=== PATIENT | female | born 1935 ===

== ENCOUNTER 2017-06-14 03:32 | Emergency (ER) ==
[2017-06-14 04:15] VITALS: BP 133/61; TEMP 97.7; BMI 29.0
[2017-06-14] MEDS ORDERED: SODIUM CHLORIDE 1,000 ML IV STA (05:16)
[2017-06-14 05:57] LABS: BASOPHILS % (AUTO) 0.3 % (0.0-3.0); HEMATOCRIT 46.6 % (37.0-47.0); HEMOGLOBIN 15.9 g/dl (12.0-16.0); IMMATURE GRANULOCYTE % (AUTO) 0.3 % (0.0-5.0); LYMPHOCYTES # (AUTO) 1.4 K/uL (0.60-3.4); LYMPHOCYTES % (AUTO) 12.5 (10.0-50.0); MEAN CORPUSCULAR HEMOGLOBIN 31.9 pg (27.0-31.0); MEAN CORPUSCULAR HGB CONC 34.1 (31.8-35.4); MEAN CORPUSCULAR VOLUME 93.4 fl (81.0-99.0); MONOCYTES # (AUTO) 0.8 K/uL (0.4-2.0); MONOCYTES % (AUTO) 6.5 (0-10); NEUTROPHILS # (AUTO) 9.3 K/ul (2.0-6.9); NEUTROPHILS % (AUTO) 80.4; PLATELET COUNT 246 10^3/uL (140-440); RED BLOOD COUNT 4.99 10^6/ul (4.20-5.40); WHITE BLOOD COUNT 11.52 K/ul (4.6-10.2)
[2017-06-14] MEDS ORDERED: PROTONIX IV IVP STA (06:00)
[2017-06-14 06:16] LABS: ALBUMIN 3.4 g/dL (3.4-5.0); ALBUMIN/GLOBULIN RATIO 0.85; ANION GAP 16.3; BILIRUBIN,TOTAL 0.31 mg/dL (0.00-1.20); BUN/CREATININE RATIO 20.25; CALCIUM 8.9 mg/dL (8.2-10.2); CREATININE 0.79 mg/dL (0.60-1.30); POTASSIUM 3.3 mmol/L (3.5-5.10); TOTAL PROTEIN 7.4 g/dL (5.8-8.1)
--- NOTE | 2017-06-14 06:21 | ED.PDOC ---
General Stated Complaint: [place] [facility] [place] [facility] [place] and [place] Time Seen by Physician: 04:00 Mode of Arrival: Ambulance Information Source: EMT, Other Exam Limitations: No limitations Nursing and Triage Documentation Reviewed and Agree: Yes <BLANQUITAAMIDELFINA Last Filed: 06/14/17 06:22> <BRENDEN LIU - Last Filed: 06/14/17 10:17> ED Provider: Dr. BRENDEN LIU Chief Complaint: Diarrhea Primary Care Provider: FRANCESCA RAMIREZ GI Complaint Exam - Vomiting/Diarrhea Complaint/Exam Onset/Duration: 2hrs Symptoms Are: Still present Initial Severity: Mild Current Severity: Mild Character of Vomiting: Reports: Non-bilious Character of Diarrhea: Reports: Watery Aggravating: Reports: None Alleviating: Reports: None Associated Signs and Symptoms: Denies: Dizziness, Light-headedness, Melena, Hematemesis, Fever, Abdominal pain, Cramping Recent Positive Test: No Use of Oral Contraceptives: No Use of Depoprovera: No Compliant With Contraceptive Use: No Non-GI Risk Factors: Reports: None Differential Diagnoses: Dehydration, Viral Gastroenteritis, UTI <DELFINA MCCURDY Filed: 06/14/17 06:22> Review of Systems - Review Of Systems Constitutional: Reports: No symptoms Eyes: Reports: No symptoms Ears, Nose, Mouth, Throat: Reports: No symptoms Respiratory: Reports: No symptoms Cardiac: Reports: No symptoms GI: Reports: Diarrhea, Nausea, Vomiting : Reports: No symptoms Musculoskeletal: Reports: No symptoms Skin: Reports: No symptoms Neurological: Reports: No symptoms Endocrine: Reports: No symptoms Hematologic/Lymphatic: Reports: No symptoms All Other Systems: Reviewed and Negative <DELFINA MCCURDY Last Filed: 06/14/17 06:22> Past Medical History - Past Medical History Previously Healthy: No Endocrine: Reports: Unknown Cardiovascular: Reports: Unknown Respiratory: Reports: Unknown Hematological: Reports: Unknown Gastrointestinal: Reports: Unknown Genitourinary: Reports: Unknown Neuro/Psych: Reports: Unknown Musculoskeletal: Reports: Unknown Cancer: Reports: Unknown Last Menstrual Period: n/a - Surgical History General Surgical History: Reports: Unknown - Family History Family History: Reports: Unknown - Social History Smoking Status: Never smoker Hx Substance Use: No Alcohol Screening: None Lives: In [place] - Immunizations Tetanus Shot up to Date: (unknown) <JASONDELILAHDELFINA - Last Filed: 06/14/17 06:22> Physical Exam - Physical Exam Appearance: Well-appearing, No pain distress, Well-nourished Ill-appearing: Mild Eyes: RICKY, EOMI, Conjunctiva clear ENT: Dry mucosa Neck: Supple Respiratory: Airway patent, Breath sounds clear, Breath sounds equal, Respirations nonlabored Cardiovascular: RRR, Pulses normal, No rub, No murmur GI/: Soft, Nontender, No masses, Bowel sounds normal, No Organomegaly Musculoskeletal: Normal strength, ROM intact, No edema, No calf tenderness Skin: Warm, Dry, Normal color Neurological: Sensation intact, Motor intact, Reflexes intact, Cranial nerves intact, Alert, Oriented Psychiatric: Affect appropriate, Mood appropriate <BLANQUITAAMIDELFINA - Last Filed: 06/14/17 06:22> Interpretation - Radiology Interpretation Radiology Interpretation By: Radiologist Radiology Results: Positive (enteritis) Exam Interpreted: CT Scan <BRENDEN LIU - Last Filed: 06/14/17 10:17> Physician Notification - Case Discussed Physician Notified: dr liu Time of Notification: 07:00 <CALLIDELFINA - Last Filed: 06/14/17 06:22> Critical Care Note - Critical Care Note Total Time (mins): 30 <BRENDEN LIU - Last Filed: 06/14/17 10:17> Course - Course Hematology/Chemistry: 06/14/17 05:49 06/14/17 05:49 <CALLIDELFINA - Last Filed: 06/14/17 06:22> - Course Hematology/Chemistry: 06/14/17 05:49 06/14/17 05:49 <BRENDEN LIU - Last Filed: 06/14/17 10:17> - Course Orders, Labs, Meds: Lab Review 06/14/17 06/14/17 06/14/17 05:15 05:49 05:49 WBC 11.52 H RBC 4.99 Hgb 15.9 Hct 46.6 MCV 93.4 MCH 31.9 H MCHC 34.1 RDW Coeff of Fatimah 13.0 Plt Count 246 Immature Gran % (Auto) 0.3 Neut % (Auto) 80.4 Lymph % (Auto) 12.5 Thayer % (Auto) 6.5 Eos % (Auto) 0.0 Baso % (Auto) 0.3 Immature Gran # (Auto) 0.0 Neut # 9.3 H Lymph # 1.4 Thayer # 0.8 Eos # 0.0 Baso # 0.0 ESR 70 H Puncture Site Lb O2 Saturation 95.0 ABG pH 7.446 ABG pCO2 36.7 ABG pO2 71.0 L ABG HCO3 25.3 ABG Total CO2 26 ABG Base Excess 1 Bud Test + O2 Delivery Device Nc Oxygen Liter Flow 2.00 FiO2 % 28.0 Sodium 146 H Potassium 3.3 L Chloride 107 Carbon Dioxide 26 Anion Gap 16.3 BUN 16 Creatinine 0.79 Estimated GFR (MDRD) 70.00 BUN/Creatinine Ratio 20.25 Glucose 132 H Calcium 8.9 Total Bilirubin 0.31 AST 12 L ALT 13 Alkaline Phosphatase 78 Total Creatine Kinase Troponin I Total Protein 7.4 Albumin 3.4 Globulin 4.0 Albumin/Globulin Ratio 0.85 TSH Urine Color Urine Clarity Urine pH Ur Specific Mayflower Urine Protein Urine Glucose (UA) Urine Ketones Urine Blood Urine Nitrite Urine Bilirubin Urine Urobilinogen Ur Leukocyte Esterase Urine Microscopic RBC Urine Microscopic WBC Ur Squamous Epith Cells Amorphous Sediment Urine Bacteria Urine Mucus Influenza A (Rapid) Influenza B (Rapid) 06/14/17 06/14/17 06/14/17 05:49 05:49 06:40 WBC RBC Hgb Hct MCV MCH MCHC RDW Coeff of Fatimah Plt Count Immature Gran % (Auto) Neut % (Auto) Lymph % (Auto) Thayer % (Auto) Eos % (Auto) Baso % (Auto) Immature Gran # (Auto) Neut # Lymph # Thayer # Eos # Baso # ESR Puncture Site O2 Saturation ABG pH ABG pCO2 ABG pO2 ABG HCO3 ABG Total CO2 ABG Base Excess Bud Test O2 Delivery Device Oxygen Liter Flow FiO2 % Sodium Potassium Chloride Carbon Dioxide Anion Gap BUN Creatinine Estimated GFR (MDRD) BUN/Creatinine Ratio Glucose Calcium Total Bilirubin AST ALT Alkaline Phosphatase Total Creatine Kinase 45 Troponin I < 0.0100 Total Protein Albumin Globulin Albumin/Globulin Ratio TSH 1.568 Urine Color Urine Clarity Urine pH Ur Specific Mayflower Urine Protein Urine Glucose (UA) Urine Ketones Urine Blood Urine Nitrite Urine Bilirubin Urine Urobilinogen Ur Leukocyte Esterase Urine Microscopic RBC Urine Microscopic WBC Ur Squamous Epith Cells Amorphous Sediment Urine Bacteria Urine Mucus Influenza A (Rapid) Negative Influenza B (Rapid) Negative 06/14/17 08:35 WBC RBC Hgb Hct MCV MCH MCHC RDW Coeff of Fatimah Plt Count Immature Gran % (Auto) Neut % (Auto) Lymph % (Auto) Thayer % (Auto) Eos % (Auto) Baso % (Auto) Immature Gran # (Auto) Neut # Lymph # Thayer # Eos # Baso # ESR Puncture Site O2 Saturation ABG pH ABG pCO2 ABG pO2 ABG HCO3 ABG Total CO2 ABG Base Excess Bud Test O2 Delivery Device Oxygen Liter Flow FiO2 % Sodium Potassium Chloride Carbon Dioxide Anion Gap BUN Creatinine Estimated GFR (MDRD) BUN/Creatinine Ratio Glucose Calcium Total Bilirubin AST ALT Alkaline Phosphatase Total Creatine Kinase Troponin I Total Protein Albumin Globulin Albumin/Globulin Ratio TSH Urine Color Yellow Urine Clarity Clear Urine pH 6.0 Ur Specific Mayflower 1.025 Urine Protein 1+ Urine Glucose (UA) Negative Urine Ketones Negative Urine Blood Trace-intact Urine Nitrite Negative Urine Bilirubin Negative Urine Urobilinogen 0.2 Ur Leukocyte Esterase Trace Urine Microscopic RBC 2-5 Urine Microscopic WBC 2-5 Ur Squamous Epith Cells 0-2 Amorphous Sediment 1+ Urine Bacteria 1+ Urine Mucus 2+ Influenza A (Rapid) Influenza B (Rapid) Orders Category Date Time Status ABG DRAW REQUEST Stat CARDIO 06/14/17 05:16 Completed EKG-(ED ONLY) Stat CARDIO 06/14/17 05:15 Completed IV [ED IV/MEDIPORT/POWERPORT] .ONCE EMERGENCY 06/14/17 05:16 Active ABG Stat LAB 06/14/17 05:15 Completed CBC W/ AUTO DIFF Stat LAB 06/14/17 05:49 Completed COMPREHENSIVE METABOLIC PANEL Stat LAB 06/14/17 05:49 Completed CREATINE KINASE Stat LAB 06/14/17 05:49 Completed ESR Stat LAB 06/14/17 05:49 Completed RAPID FLU A/B Stat LAB 06/14/17 06:40 Completed TROPONIN I Stat LAB 06/14/17 05:49 Completed TSH [THYROID STIMULATING HORMONE] Stat LAB 06/14/17 05:49 Completed URINALYSIS C & S IF INDICATED Stat LAB 06/14/17 08:35 Completed URINE CULTURE Stat LAB 06/14/17 08:35 Received 0.9 % Sodium Chloride [Saline Flush] MEDS 06/14/17 05:16 Active 1 syr IVF PRN PRN Pantoprazole Sodium [Protonix IV] MEDS 06/14/17 06:00 Discontinued 40 mg IVP ONCE STA Sodium Chloride 0.9% [Sodium Chloride] 1,000 ml MEDS 06/14/17 05:[address] ABDOMEN/PELVIS WO CONTRAST Stat RADS 06/14/17 05:16 Completed Medications Generic Name Dose Route Start Last Admin Trade Name Fredaniel PRN Reason Stop Dose Admin Sodium Chloride 1 syr 06/14/17 05:16 06/14/17 06:49 Saline Flush IVF 1 syr PRN PRN Administration To flush IV Discontinued Medications Generic Name Dose Route Start Last Admin Trade Name Freq PRN Reason Stop Dose Admin Sodium Chloride 1,000 mls @ 1,000 mls/hr 06/14/17 05:16 06/14/17 06:49 Sodium Chloride IV 06/14/17 06:15 1,000 mls/hr BOLUS STA Administration Pantoprazole Sodium 40 mg 06/14/17 06:00 06/14/17 07:21 Protonix Iv IVP 06/14/17 06:01 40 mg ONCE STA Administration Vital Signs: Temp Pulse Resp BP Pulse Ox 06/14/17 03:49 97.7 F 80 16 133/61 94 L Departure <DELFINA MCCURDY - Last Filed: 06/14/17 06:22> - Departure Time of Disposition: 10:16 Pt referred to PMD for follow-up: Yes Disposition Discussed With: Family <BRENDEN LIU - Last Filed: 06/14/17 10:17> - Departure Disposition: TRANSFER SNF Discharge Problem: Diarrhea Instructions: Dehydration (ED) Condition: Stable Additional Instructions: Imodium 2 mg po tid prn for diarrhea x 7 days Increase hydration Probiotics /Yogurt. Allergies/Adverse Reactions: Allergies atorvastatin [From Lipitor] Adverse Reaction (Verified 06/14/17 04:18) NSAIDS (Non-Steroidal Anti-Inflamma Adverse Reaction (Verified 06/14/17 04:18) rosuvastatin [From Crestor] Adverse Reaction (Verified 06/14/17 04:18) strawberry Adverse Reaction (Verified 06/14/17 04:21) Home Medications: Ambulatory Orders Acetaminophen [Tylenol] 325 mg PO Q4H 06/14/17 Alprazolam [Xanax] 0.25 mg PO TID 06/14/17 Amlodipine Besylate 10 mg PO DAILY 06/14/17 Levothyroxine Sodium 75 mcg PO DAILY 06/14/17 Magnesium Hydroxide [Milk of Magnesia] 30 ml PO DAILY PRN 06/14/17 Nystatin [Nystop Powder] 1 applic TP Q8H PRN 06/14/17 Risperidone [Risperdal] 0.25 mg PO DAILY 06/14/17
[2017-06-14 06:28] LABS: ABG BASE EXCESS 1 (-2.0-2.0); ABG PCO2 36.7 mmHg (35-45); ABG PH 7.446 (7.35-7.45)
[2017-06-14 06:29] LABS: ABG HCO3 25.3 (22.0-26.0); ABG TCO2 26 (22.0-28.0)
[2017-06-14 06:35] LABS: ERYTHROCYTE SEDIMENTATION RATE 70 mm/hr (0-20); ESR INTERNAL QC INTERNAL QC VALID
[2017-06-14 06:39] LABS: CREATINE KINASE 45 U/L
[2017-06-14 07:11] LABS: FLU INTERNAL QC INTERNAL QC VALID; RAPID FLU A NEGATIVE (NEGATIVE); RAPID FLU B NEGATIVE (NEGATIVE)
--- NOTE | 2017-06-14 08:28 | CT ---
EXAM: CT abdomen and pelvis without contrast. HISTORY: Vomiting TECHNIQUE: Multi-slice transaxial helical CT. Coronal and sagittal reformatons were performed. COMPARISON: None FINDINGS: The heart is borderline enlarged. There is a trace pericardial effusion. Coronary artery calcificat ions are present. Bibasilar dependent atelectasis is present within the lung bases. Evaluation of the solid organs is limited without IV contrast. The gallbladder has been removed. A c ircumscribed water density structure in the hepatic dome measures 2.8 cm and demonstrates peripheral coarse calcifications. There is no intrahepatic biliary ductal dilation. The spleen is normal in si ze. There is no hydronephrosis or renal calculus. The pancreas is atrophic. The bile adrenal glands appear grossly unremarkable within the confines of a noncontrast exam. The bowel is not dilated. An air-fluid level is present within the rectum. Multiple diverticuli are seen within the colon. Multiple additional air-fluid levels are seen throughout the colon. Nondilat ed small bowel loops are fluid filled. No evidence of free fluid in the pelvis is seen. The uterus appears absent. Urinary bladder appears unremarkable. Calcified plaques are present within the abdo irina aorta and its major branch vessels. Focal bulging of the anterior abdominal wall is present. The appendix is not clearly identified. The bones are osteopenic. Mild osteitis pubis is present. Moderate multilevel degenerative changes of the lumbar spine are present. IMPRESSION: 1. Diffuse nondilated fluid filled small bowel is nonspecific. This can be seen with enteritis. 2. Air-fluid levels throughout the colon suggesting diarrhea. 3. Colonic diverticulosis without diverticulitis. 4. Complex cyst in the hepatic dome. Recommend comparison with prior imaging to demonstrate stabili ty. 5. Atherosclerosis including coronary disease. 6. Other age-related changes as above.
[2017-06-14 08:42] LABS: BILIRUBIN,URINE Negative (NEGATIVE); KETONES,URINE Negative (NEGATIVE); LEUKOCYTE ESTERASE ,URINE Trace (NEGATIVE); NITRITE,URINE Negative (NEGATIVE); PROTEIN,URINE 1+ (NEGATIVE); URINE, BLOOD Trace-intact (NEGATIVE)
[2017-06-14 08:44] LABS: ADD URINE MICROSCOPIC YES
[2017-06-14 08:45] LABS: BACTERIA,URINE 1+ (NOT PRESENT)
== END 2017-06-14 12:56 ==
LOC: ED 03:32
DX: E86.0 Dehydration (principal); R19.7 Diarrhea, unspecified; R11.2 Nausea with vomiting, unspecified; R40.2421 Glasgow coma scale score 9-12, in the field [EMT or ambulance]; Z79.899 Other long term (current) drug therapy
CPT/HCPCS: 36415; 80053; 81001; 82550; 82803; 84443; 84484; 85025; 85651; 87086; 87804; 93005; 93010; 96360; 96361; 96374; 99284

== ENCOUNTER 2017-09-14 12:56 | Outpatient (CLI) | END 2017-09-14 12:57 | disposition home or self-care (01) | LOC: NONPT 12:56 | PROVIDERS: ATTEND Emergency Medicine | DX: R05 Cough (principal); R68.89 Other general symptoms and signs | CPT/HCPCS: 87502 ==